=== PATIENT | female | born 1970 | race Caucasian/White ===

== ENCOUNTER → 2017-01-05 | Outpatient (CLI) | payer BC | LOC: MMGSC 10:54 | PROVIDERS: ATTEND Family Medicine | DX: E03.9 Hypothyroidism, unspecified (principal) | CPT/HCPCS: 36415; 84439; 84443 ==

== ENCOUNTER → 2017-05-09 | Outpatient (CLI) | payer BC ==
[2017-05-09 20:45] LABS: Basophils % (A) 1 %; Eosinophils # (A) 0.2 k/uL (0-0.7); Eosinophils % (A) 3 %; HCT 38.1 % (34.0-46.0); HDW 2.78; HGB 12.2 gm/dL (11.4-16.0); Luc # (Auto) 0.11; Luc % (Auto) 2; Lymphocytes # (A) 1.7 k/uL (1.0-4.8); Lymphocytes % (A) 30 %; MCH 28.1 pg (25.0-35.0); MCHC 32.1 g/dL (31.0-37.0); MCV 87.8 fL (80.0-100.0); Mean Platelet Volume 8.5; Monocytes # (A) 0.3 k/uL (0-1.0); Monocytes % (A) 6 %; Neutrophils # (A) 3.3 k/uL (1.3-7.7); Neutrophils % (A) 59 %; RBC 4.34 m/uL (3.80-5.40); RDW 15.1 % (11.5-15.5); WBC 5.6 k/uL (3.8-10.6); WBC (Perox) 5.76
[2017-05-09 20:57] LABS: ALT 29 U/L (9-52); AST 25 U/L (14-36); Alkaline Phosphatase 102 U/L (38-126); Anion Gap 12 mmol/L; Blood Urea Nitrogen 15 mg/dL (7-17); Calcium 9.3 mg/dL (8.4-10.2); Carbon Dioxide 20 mmol/L (22-30); Chloride 109 mmol/L (98-107); Cholesterol 234 mg/dL (<200); Glucose 99 mg/dL (74-99); HDL Cholesterol 51 mg/dL (40-60); Non-African American GFR(MDRD) >60 (>60 ml/min/1.73 sqM); Potassium 3.7 mmol/L (3.5-5.1); Sodium 141 mmol/L (137-145); Total Bilirubin 0.3 mg/dL (0.2-1.3); Total Protein 6.9 g/dL (6.3-8.2)
== END ==
LOC: MMGSC 12:58
PROVIDERS: ATTEND Family Medicine
DX: E03.9 Hypothyroidism, unspecified (principal); E66.9 Obesity, unspecified; E55.9 Vitamin D deficiency, unspecified; G35 Multiple sclerosis
CPT/HCPCS: 36415; 80053; 80061; 82306; 84439; 84443; 85025

== ENCOUNTER → 2018-10-11 | Outpatient (CLI) | payer BC ==
[2018-10-11 08:09] LABS: HGB 12.1 gm/dL (11.4-16.0); MCH 27.3 pg (25.0-35.0); MCHC 31.1 g/dL (31.0-37.0); MCV 87.8 fL (80.0-100.0); Mean Platelet Volume 6.9; Platelet Count 408 k/uL (150-450); RBC 4.44 m/uL (3.80-5.40); RDW 13.9 % (11.5-15.5); WBC 9.1 k/uL (3.8-10.6)
[2018-10-11 20:59] LABS: Albumin 4.5 g/dL (3.80-4.90); Albumin/Globulin Ratio 1.96 (1.60-3.17); Anion Gap 9.2 mmol/L (4.00-12.00); Calcium 9.2 mg/dL (8.7-10.3); Carbon Dioxide 25.8 mmol/L (21.6-31.8); Globulin 2.3 g/dL (1.6-3.3); LDL Cholesterol,Calculated 136.4 mg/dL (0.0-131.0); Potassium 3.6 mmol/L (3.5-5.5); Total Bilirubin 0.2 mg/dL (0.3-1.2); Total Protein 6.8 g/dL (6.2-8.2); VLDL Calculation 24.6 mg/dL (5.00-40.00)
[2018-10-11 21:09] LABS: T4, Free (Free Thyroxine) 1.5 ng/dL (0.80-1.80)
== END | disposition home or self-care (01) ==
LOC: LABWHC1 07:29
PROVIDERS: ATTEND Family Medicine
DX: E03.9 Hypothyroidism, unspecified (principal); E55.9 Vitamin D deficiency, unspecified; I10 Essential (primary) hypertension
CPT/HCPCS: 36415; 80053; 80061; 82306; 84439; 84443; 85027

== ENCOUNTER 2018-12-03 13:28 | Emergency (ER) | payer BC ==
--- NOTE | 2018-12-03 16:10 | ED ---
General Adult HPI - General Chief complaint: Upper Respiratory Infection Stated complaint: Fever, Body Aches Time Seen by Provider: 12/03/18 15:37 Source: patient Mode of arrival: ambulatory Limitations: no limitations - History of Present Illness Initial comments: Patient is a 48-year-old female complaining of fever, chills, body aches 3 days. Patient believes she has a UTI. Patient states she has UTIs frequently and often feels similar. She denies burning with urination, discharge. Patient has past medical history of MS. Patient also admits to mild cough, runny nose, headache, earaches, generalized abdominal pain. Patient denies chest pain, shortness of breath. States she has been having a fever of 100-101 at home and taking Motrin. - Related Data Home Medications Medication Instructions Recorded Confirmed Dextroamphetamine/Amphetamine 20 mg PO TID 04/15/16 12/03/18 [Adderall] Ergocalciferol [Vitamin D2 50,000 unit PO FR 12/03/18 12/03/18 (DRISDOL)] Ibuprofen [Motrin] 800 mg PO Q8H 12/03/18 12/03/18 Levothyroxine Sodium [Synthroid] 125 mcg PO DAILY 12/03/18 12/03/18 Loratadine [Claritin] 10 mg PO DAILY PRN 12/03/18 12/03/18 Previous Rx's Medication Instructions Recorded Metoprolol Succinate (ER) [Toprol 25 mg PO DAILY #14 tab.er.24h 05/11/15 XL] Cephalexin [Keflex] 500 mg PO Q12HR 7 Days #14 cap 12/03/18 Allergies Allergy/AdvReac Type Severity Reaction Status Date / Time sulfamethoxazole Allergy Intermediate Rash/Hives Verified 12/03/18 15:46 [From Bactrim] trimethoprim [From Bactrim] Allergy Intermediate Rash/Hives Verified 12/03/18 15:46 Review of Systems ROS Statement: Those systems with pertinent positive or pertinent negative responses have been documented in the HPI. ROS Other: All systems not noted in ROS Statement are negative. Past Medical History Past Medical History: Fibromyalgia, Neurologic Disorder, Thyroid Disorder Additional Past Medical History / Comment(s): ms, chronic fatigue, qt syndrome, Anemia, B-12 deficiency, Vit D deficiency History of Any Multi-Drug Resistant Organisms: None Reported Past Surgical History: Appendectomy, Bariatric Surgery, Tubal Ligation Additional Past Surgical History / Comment(s): breast reconstruction Past Anesthesia/Blood Transfusion Reactions: No Reported Reaction Past Psychological History: ADD/ADHD, Anxiety, Depression, Panic Disorder, PTSD Smoking Status: Never smoker Past Alcohol Use History: None Reported Past Drug Use History: None Reported - Past Family History Father Family Medical History: Cancer Mother Family Medical History: No Reported History Sister(s) Family Medical History: No Reported History Daughter(s) Family Medical History: No Reported History Son(s) Family Medical History: No Reported History General Exam - General Exam Comments Initial Comments: GENERAL: Well-appearing, well-nourished and in no acute distress. HEAD: Atraumatic, normocephalic. EYES: Pupils equal round and reactive to light, extraocular movements intact, sclera anicteric, conjunctiva are normal. ENT: TMs normal, nares patent, oropharynx clear without exudates. Moist mucous membranes. NECK: Normal range of motion, supple without lymphadenopathy or JVD. LUNGS: Breath sounds clear to auscultation bilaterally and equal. No wheezes rales or rhonchi. HEART: Regular rate and rhythm without murmurs, rubs or gallops. ABDOMEN: Generalized abdominal pain. Soft, normoactive bowel sounds. No guarding, no rebound. No masses appreciated. : Deferred EXTREMITIES: Normal range of motion, no pitting or edema. No clubbing or cyanosis. NEUROLOGICAL: Cranial nerves II through XII grossly intact. Normal speech, normal gait. PSYCH: Normal mood, normal affect. SKIN: Warm, Dry, normal turgor, no rashes or lesions noted. Limitations: no limitations Course Vital Signs 12/03/18 14:24 Temperature 99.3 F Pulse Rate 104 H Respiratory 20 Rate Blood Pressure 98/55 O2 Sat by Pulse 96 Oximetry Medical Decision Making - Medical Decision Making Patient is a 48-year-old female complaining of fever, generalized fatigue 3 days. She states she thinks she has a UTI as she has had these in the past and often feels similar. She denies any urinary complaints. Past medical history of MS. Admits to associated cough, runny nose, congestion, generalized abdominal pain, headache. Other than general abdominal tenderness, exam is normal. UA shows a large amount leukocyte Estrace and nitrates positive. Patient will be given Keflex and discharged home. Disposition Clinical Impression: UTI (urinary tract infection) Disposition: HOME SELF-CARE Condition: Stable Instructions (If sedation given, give patient instructions): Urinary Tract Infection in Women (ED) Additional Instructions: Please return to the Emergency Department if symptoms worsen or any other concerns. Prescriptions: Cephalexin [Keflex] 500 mg PO Q12HR 7 Days #14 cap Is patient prescribed a controlled substance at d/c from ED?: No Referrals: Shanita Montano MD [Primary Care Provider] - 1-2 days
[2018-12-03 17:13] LABS: Appearance,Urine Cloudy (Clear); Bacteria,Urine Many /hpf; Bilirubin,Urine Negative (Negative); Blood,Urine Trace (Negative); Color,Urine Light Yellow; Glucose,Urine (UA) Negative (Negative); Hyaline Casts,Urine 4 /lpf (0-2); Ketones,Urine Negative (Negative); Leukocyte Esterase,Urine Large (Negative); Mucus,Urine Rare /hpf; Nitrite,Urine Positive (Negative); PH, Urine 5.5 (5.0-8.0); Protein,Urine 1+ (Negative); RBC,Urine 2 /hpf (0-5); Specific Gravity,Urine 1.009 (1.001-1.035); Squamous Epithelial Cell,Urine 7 /hpf (0-4); Urobilinogen,Urine <2.0 mg/dL (<2.0)
[2018-12-03 17:21] VITALS: RESP 16
[2018-12-03 17:32] VITALS: BP 118/80; PULSE 83; TEMP 99.1
== END 2018-12-03 17:27 | disposition home or self-care (01) ==
LOC: EC 13:28
DX: N39.0 Urinary tract infection, site not specified (principal); R53.83 Other fatigue; R05 Cough; R09.89 Other specified symptoms and signs involving the circulatory and respiratory systems; R10.84 Generalized abdominal pain; R51 Headache; M79.7 Fibromyalgia; E07.9 Disorder of thyroid, unspecified; F90.9 Attention-deficit hyperactivity disorder, unspecified type; F41.0 Panic disorder [episodic paroxysmal anxiety]; F32.9 Major depressive disorder, single episode, unspecified; F43.10 Post-traumatic stress disorder, unspecified; Z79.899 Other long term (current) drug therapy; Z79.890 Hormone replacement therapy; Z79.1 Long term (current) use of non-steroidal anti-inflammatories (NSAID); Z88.1 Allergy status to other antibiotic agents; Z88.2 Allergy status to sulfonamides; Z90.49 Acquired absence of other specified parts of digestive tract
CPT/HCPCS: 81001; 87086; 99283

== ENCOUNTER → 2019-08-21 | Outpatient (CLI) | payer BC ==
[2019-08-21 12:14] LABS: T4, Free (Free Thyroxine) 1.5 ng/dL (0.80-1.80)
[2019-08-21 13:08] LABS: African American GFR (CKD) 87.6 (60.0-200.0); Albumin 4.7 g/dL (3.80-4.90); Albumin/Globulin Ratio 2.24 (1.60-3.17); Anion Gap 5.9 mmol/L (4.00-12.00); BUN/Creat Ratio 15.56 Ratio (12.00-20.00); Carbon Dioxide 28.1 mmol/L (21.6-31.8); Chol/HDL Ratio 4.15; Globulin 2.1 g/dL (1.6-3.3); LDL Cholesterol,Calculated 167.2 mg/dL (0.0-131.0); Non-African American GFR(CKD) 75.6 (60.0-200.0); Potassium 5.1 mmol/L (3.5-5.5); Total Bilirubin 0.3 mg/dL (0.2-1.2); Total Protein 6.8 g/dL (6.2-8.2); VLDL Calculation 40.8 mg/dL (5.00-40.00)
== END | disposition home or self-care (01) ==
LOC: LABWHC1 06:39
PROVIDERS: ATTEND Family Medicine
DX: I10 Essential (primary) hypertension (principal); E03.9 Hypothyroidism, unspecified
CPT/HCPCS: 36415; 80053; 80061; 84439; 84443

== ENCOUNTER → 2020-06-11 | Outpatient (CLI) | payer BC ==
[2020-06-11 16:53] LABS: Chol/HDL Ratio 4.14; LDL Cholesterol,Calculated 158.4 mg/dL (0.0-131.0); VLDL Calculation 23.6 mg/dL (5.00-40.00)
[2020-06-11 17:01] LABS: T4, Free (Free Thyroxine) 1.7 ng/dL (0.80-1.80)
== END | disposition home or self-care (01) ==
LOC: LABWHC1 08:32
PROVIDERS: ATTEND Family Medicine
DX: E55.9 Vitamin D deficiency, unspecified (principal); E03.9 Hypothyroidism, unspecified; E78.5 Hyperlipidemia, unspecified
CPT/HCPCS: 36415; 80061; 82306; 84439; 84443

== ENCOUNTER 2022-11-28 02:22 | Emergency (ER) | payer BC ==
[2022-11-28] MEDS ORDERED: ALBUTEROL HFA INHALER INHALATION STA (02:55)
[2022-11-28] MEDS ORDERED: SODIUM CHLORIDE 0.9% 1,000 ML IV STA (02:55)
[2022-11-28] MEDS ORDERED: methylPREDNISolone SOD SUCCI 125 MG/2 ML VIAL IV STA (02:55)
[2022-11-28 03:25] LABS: Anisocytosis Slight; Basophils % (A) 0 %; Eosinophils # (A) 0.2 k/uL (0-0.7); Eosinophils % (A) 2 %; HCT 30.5 % (34.0-46.0); HGB 9.9 gm/dL (11.4-16.0); Lymphocytes # (A) 3.2 k/uL (1.0-4.8); Lymphocytes % (A) 22 %; MCH 26.4 pg (25.0-35.0); MCHC 32.5 g/dL (31.0-37.0); MCV 81.1 fL (80.0-100.0); Mean Platelet Volume 7.6; Monocytes # (A) 0.7 k/uL (0-1.0); Monocytes % (A) 5 %; Neutrophils # (A) 9.9 k/uL (1.3-7.7); Neutrophils % (A) 68 %; Platelet Count 493 k/uL (150-450); RBC 3.76 m/uL (3.80-5.40); RDW 16.2 % (11.5-15.5); WBC 14.6 k/uL (3.8-10.6)
[2022-11-28 03:30] LABS: Albumin 3.7 g/dL (3.5-5.0); Calcium 8.3 mg/dL (8.4-10.2); Magnesium 2.1 mg/dL (1.6-2.3); Partial Thromboplastin Time 25.1 sec (22.0-30.0); Potassium 3.2 mmol/L (3.5-5.1); Prothrombin Time 10.2 sec (9.0-12.0); Total Bilirubin 0.3 mg/dL (0.2-1.3); Total Protein 6.9 g/dL (6.3-8.2)
[2022-11-28] MEDS ORDERED: KETOROLAC 15 MG/ML 1 ML VIAL IVP STA (03:34)
--- NOTE | 2022-11-28 05:07 | XR ---
EXAM: XR Chest, 2 Views CLINICAL HISTORY: ITS.REASON XR Reason: difficulty breathing TECHNIQUE: Frontal and lateral views of the chest. COMPARISON: X-ray dated 02/27/2015 FINDINGS: Lungs: Unremarkable. No consolidation. Pleural space: Unremarkable. No pneumothorax. Heart: Unremarkable. No cardiomegaly. Mediastinum: Unremarkable. Bones/joints: Unremarkable. Upper abdomen: Surgical clips are seen within the mid upper abdomen. IMPRESSION: No acute cardiopulmonary disease.
[2022-11-28] MEDS ORDERED: AMOXIC-POT CLAV 875-125MG 1 EACH TAB PO STA (05:14)
[2022-11-28] MEDS ORDERED: POTASSIUM CHLORIDE ER 20 MEQ TAB.ER PO STA (05:14)
--- NOTE | 2022-11-28 05:15 | ED ---
General Adult HPI - General Chief complaint: Shortness of Breath Stated complaint: Difficulty Breathing, Bronchitis Time Seen by Provider: 11/28/22 02:53 Source: patient, RN notes reviewed, old records reviewed Mode of arrival: ambulatory Limitations: no limitations - History of Present Illness Initial comments: Patient is a 52-year-old female with past medical history remarkable for fibromyalgia, thyroid disorder presents emergency Department with multiple weeks of a nonproductive cough. Believe she has bronchitis. Has been treated twice with Medrol Dosepak's and sepsis. She has done the cough comes back. She states she is a nonsmoker. Does have a history of MS. Denies any fevers. Does endorse some left-sided chest discomfort with coughing. Denies any abdominal pain. Denies any nausea or vomiting or diarrhea. No known sick contacts. No fevers. No sore throat. Presents for further evaluation at this time. - Related Data Home Medications Medication Instructions Recorded Confirmed Dextroamphetamine/Amphetamine 20 mg PO TID 04/15/16 12/03/18 [Adderall] Ergocalciferol [Vitamin D2 50,000 unit PO FR 12/03/18 12/03/18 (DRISDOL)] Ibuprofen [Motrin] 800 mg PO Q8H 12/03/18 12/03/18 Levothyroxine Sodium [Synthroid] 125 mcg PO DAILY 12/03/18 12/03/18 Loratadine [Claritin] 10 mg PO DAILY PRN 12/03/18 12/03/18 Previous Rx's Medication Instructions Recorded Metoprolol Succinate (ER) [Toprol 25 mg PO DAILY #14 tab.er.24h 05/11/15 XL] Cephalexin [Keflex] 500 mg PO Q12HR 7 Days #14 cap 12/03/18 Albuterol Inhaler [Ventolin Hfa 1 puff INHALATION TID #8 gm 11/28/22 Inhaler] Amoxic-Pot Clav 875-125Mg 1 tab PO Q12HR 7 Days #14 tab 11/28/22 [Augmentin 875-125] predniSONE [Deltasone] 40 mg PO DAILY 5 Days #10 tab 11/28/22 Allergies Allergy/AdvReac Type Severity Reaction Status Date / Time sulfamethoxazole Allergy Intermediate Rash/Hives Verified 11/28/22 02:25 [From Bactrim] trimethoprim [From Bactrim] Allergy Intermediate Rash/Hives Verified 11/28/22 02:25 Review of Systems ROS Statement: Those systems with pertinent positive or pertinent negative responses have been documented in the HPI. Review of Systems: CONST: Denies fever EYES: Denies blurry vision ENT: Endorses nasal congestion C/V: Denies Chest pain RESP: Denies shortness of breath GI: Denies abdominal pain : Denies dysuria SKIN: Denies rash. MSK: Denies joint pain. NEURO: Denies headache ROS Other: All systems not noted in ROS Statement are negative. Past Medical History Past Medical History: Fibromyalgia, Neurologic Disorder, Thyroid Disorder Additional Past Medical History / Comment(s): ms, chronic fatigue, qt syndrome, Anemia, B-12 deficiency, Vit D deficiency History of Any Multi-Drug Resistant Organisms: None Reported Past Surgical History: Appendectomy, Bariatric Surgery, Tubal Ligation Additional Past Surgical History / Comment(s): breast reconstruction Past Anesthesia/Blood Transfusion Reactions: No Reported Reaction Past Psychological History: ADD/ADHD, Anxiety, Depression, Panic Disorder, PTSD Smoking Status: Never smoker Past Alcohol Use History: Rare Past Drug Use History: Marijuana - Past Family History Father Family Medical History: Cancer Mother Family Medical History: No Reported History Sister(s) Family Medical History: No Reported History Daughter(s) Family Medical History: No Reported History Son(s) Family Medical History: No Reported History General Exam - General Exam Comments Initial Comments: General: Appears in no acute distress. HEAD: Normal with no signs of head trauma. EYES: PERRLA, EOMI, conjunctiva normal, no discharge. ENT: Hearing grossly intact, normal oropharynx. RESPIRATORY: Clear breath sounds bilaterally. No wheezes, rales, or rhonchi. Increased work of breathing and coughing but at rest is within normal limits. No hypoxia. C/V: Tachycardic with a regular rhythm. S1 and S2 auscultated, no edema, peripheral pulses 2+ and intact throughout ABD: Abd is soft, nontender, nondistended EXT: Normal range of motion, no obvious deformity SKIN: No rashes or lesions observed on exposed skin. NEURO: Alert and oriented 4. Limitations: no limitations Course Vital Signs 11/28/22 11/28/22 02:25 03:01 Temperature 99.1 F Pulse Rate 119 H 87 Respiratory 32 H 20 Rate Blood Pressure 154/100 147/91 O2 Sat by Pulse 95 98 Oximetry Medical Decision Making - Medical Decision Making Was pt. sent in by a medical professional or institution (, KARLA, DATA PROCESSING OPERATOR, urgent care, hospital, or fpc...) When possible be specific @ -No Did you speak to anyone other than the patient for history (EMS, parent, family, police, friend...)? What history was obtained from this source @ -No Did you review nursing and triage notes (agree or disagree)? Why? @ -I reviewed and agree with nursing and triage notes Were old charts reviewed (outside hosp., previous admission, EMS record, old EKG, old radiological studies, urgent care reports/EKG's, fpc records)? Report findings @ -No old charts were reviewed Differential Diagnosis (chest pain, altered mental status, abdominal pain women, abdominal pain men, vaginal bleeding, weakness, fever, dyspnea, syncope, headache, dizziness, GI bleed, back pain, seizure, CVA, palpatations, mental health, musculoskeletal)? @ -Differential Dyspnea: Coronary syndrome, arrhythmia, tamponade, asthma, COPD, pulmonary embolism, pneumonia, pneumothorax, pulmonary effusion, anaphylaxis, diabetic ketoacidosis, flailed chest, pulmonary contusion, diaphragmatic rupture, anemia, neuromuscular, this is not meant to be an all-inclusive list. EKG interpreted by me (3pts min.). @ -As above X-rays interpreted by me (1pt min.). @ -Chest x-ray reveals no obvious acute cardiopulmonary process. CT interpreted by me (1pt min.). @ -None done U/S interpreted by me (1pt. min.). @ -None done What testing was considered but not performed or refused? (CT, X-rays, U/S, labs)? Why? @ -None What meds were considered but not given or refused? Why? @ -None Did you discuss the management of the patient with other professionals (francisco javier sepulveda iJeanettee. KARLA Cheatham, DATA PROCESSING OPERATOR, lab, RT, psych nurse, social media assistant, tow truck driver, teacher, agricultural extension officer, rehabilitation case coordinator)? Give summary @ -No Was smoking cessation discussed for >3mins.? @ -No Was critical care preformed (if so, how long)? @ -No Were there social determinants of health that impacted care today? How? (Homelessness, low income, unemployed, alcoholism, drug addiction, transportatio n, low edu. Level, literacy, decrease access to med. care, senior care, rehab)? @ -No Was there de-escalation of care discussed even if they declined (Discuss DNR or withdrawal of care, Hospice)? DNR status @ -No What co-morbidities impacted this encounter? (DM, HTN, Smoking, COPD, CAD, Cancer, CVA, ARF, Chemo, Hep., AIDS, mental health diagnosis, sleep apnea, morbid obesity)? @ -None Was patient admitted / discharged? Hospital course, mention meds given and route, prescriptions, significant lab abnormalities, going to OR and other pertinent info. @ -Based on the patient's presentation and physical exam, I do believe she is likely experiencing continued bronchitis but cannot rule out other etiologies for her upper respiratory symptoms at this time. Due to the nonspecific left- sided chest discomfort we will obtain cardiac screening labs. She'll be sent likely treatment with IV Toradol, as well as IV Solu-Medrol, IV fluids, be on inhaler. Vital signs within acceptable limits at bedside. She was in agreement with this plan. EKG showed no signs of acute ischemia. Chest x-ray unremarkable. Labs show mild leukocytosis of 14. Chronic anemia. Hypokalemia which was replenished. Troponin undetectable. BNP within normal limits. On reevaluation, we did discuss she is likely experiencing bronchitis. She has not yet been trialed on antibiotic she will be started on Augmentin twice a day and given a dose here in the department. She'll also receive a prescription for steroids and albuterol inhaler. She was in agreement with this plan. Strict return precautions discussed. Instructions to follow up with PCP. I will provide the patient with a prescription for Augmentin, prednisone, albuterol inhaler. I instructed the patient to follow up with their PCP in the next 1-3 days. I explained that the patient should return to the emergency department if they experience any worsening symptoms. Strict return precautions were discussed with the patient. The patient expressed understanding of these instructions. I answered all questions that the patient had. The patient was discharged home in good condition with their prescriptions and follow up information. Undiagnosed new problem with uncertain prognosis? @ -No Drug Therapy requiring intensive monitoring for toxicity (Heparin, Nitro, Insulin, Cardizem)? @ -No Were any procedures done? @ -No Diagnosis/symptom? @ -Bronchitis Acute, or Chronic, or Acute on Chronic? @ -Acute Uncomplicated (without systemic symptoms) or Complicated (systemic symptoms)? @ -Complicated Side effects of treatment? @ -No Exacerbation, Progression, or Severe Exacerbation? @ -No Poses a threat to life or bodily function? How? (Chest pain, USA, MS, pneumonia, PE, COPD, DKA, ARF, appy, cholecystitis, CVA, Diverticulitis, Homicidal, Suicidal, threat to staff... and all critical care pts) @ -No Diagnosis/symptom? @ -Hypokalemia Acute, or Chronic, or Acute on Chronic? @ -Acute Uncomplicated (without systemic symptoms) or Complicated (systemic symptoms)? @ -Uncomplicated Side effects of treatment? @ -none Exacerbation, Progression, or Severe Exacerbation] @ -no Poses a threat to life or bodily function? @ -no - Lab Data Result diagrams: 11/28/22 03:06 11/28/22 03:06 Lab Results 11/28/22 11/28/22 11/28/22 Range/Units 03:06 03:06 03:06 WBC 14.6 H (3.8-10.6) k/uL RBC 3.76 L (3.80-5.40) m/uL Hgb 9.9 L (11.4-16.0) gm/dL Hct 30.5 L (34.0-46.0) % MCV 81.1 (80.0-100.0) fL MCH 26.4 (25.0-35.0) pg MCHC 32.5 (31.0-37.0) g/dL RDW 16.2 H (11.5-15.5) % Plt Count 493 H (150-450) k/uL MPV 7.6 Neutrophils % 68 % Lymphocytes % 22 % Monocytes % 5 % Eosinophils % 2 % Basophils % 0 % Neutrophils # 9.9 H (1.3-7.7) k/uL Lymphocytes # 3.2 (1.0-4.8) k/uL Monocytes # 0.7 (0-1.0) k/uL Eosinophils # 0.2 (0-0.7) k/uL Basophils # 0.0 (0-0.2) k/uL Anisocytosis Slight PT 10.2 (9.0-12.0) sec INR 1.0 (<1.2) APTT 25.1 (22.0-30.0) sec Sodium 138 (137-145) mmol/L Potassium 3.2 L (3.5-5.1) mmol/L Chloride 110 H (98-107) mmol/L Carbon Dioxide 15 L (22-30) mmol/L Anion Gap 13 mmol/L BUN 12 (7-17) mg/dL Creatinine 1.13 H (0.52-1.04) mg/dL Est GFR (CKD-EPI)AfAm 65 (>60 ml/min/1.73 sqM) Est GFR (CKD-EPI)NonAf 57 (>60 ml/min/1.73 sqM) Glucose 99 (74-99) mg/dL Calcium 8.3 L (8.4-10.2) mg/dL Magnesium 2.1 (1.6-2.3) mg/dL Total Bilirubin 0.3 (0.2-1.3) mg/dL AST 41 H (14-36) U/L ALT 31 (4-34) U/L Alkaline Phosphatase 134 H (38-126) U/L Troponin I (0.000-0.034) ng/mL NT-Pro-B Natriuret Pep pg/mL Total Protein 6.9 (6.3-8.2) g/dL Albumin 3.7 (3.5-5.0) g/dL 11/28/22 11/28/22 Range/Units 03:06 03:06 WBC (3.8-10.6) k/uL RBC (3.80-5.40) m/uL Hgb (11.4-16.0) gm/dL Hct (34.0-46.0) % MCV (80.0-100.0) fL MCH (25.0-35.0) pg MCHC (31.0-37.0) g/dL RDW (11.5-15.5) % Plt Count (150-450) k/uL MPV Neutrophils % % Lymphocytes % % Monocytes % % Eosinophils % % Basophils % % Neutrophils # (1.3-7.7) k/uL Lymphocytes # (1.0-4.8) k/uL Monocytes # (0-1.0) k/uL Eosinophils # (0-0.7) k/uL Basophils # (0-0.2) k/uL Anisocytosis PT (9.0-12.0) sec INR (<1.2) APTT (22.0-30.0) sec Sodium (137-145) mmol/L Potassium (3.5-5.1) mmol/L Chloride (98-107) mmol/L Carbon Dioxide (22-30) mmol/L Anion Gap mmol/L BUN (7-17) mg/dL Creatinine (0.52-1.04) mg/dL Est GFR (CKD-EPI)AfAm (>60 ml/min/1.73 sqM) Est GFR (CKD-EPI)NonAf (>60 ml/min/1.73 sqM) Glucose (74-99) mg/dL Calcium (8.4-10.2) mg/dL Magnesium (1.6-2.3) mg/dL Total Bilirubin (0.2-1.3) mg/dL AST (14-36) U/L ALT (4-34) U/L Alkaline Phosphatase (38-126) U/L Troponin I <0.012 (0.000-0.034) ng/mL NT-Pro-B Natriuret Pep 212 pg/mL Total Protein (6.3-8.2) g/dL Albumin (3.5-5.0) g/dL - EKG Data -: EKG Interpreted by Me EKG Comments: 12-lead Electrocardiogram Interpretation Note EKG was reviewed and interpreted by myself. 12-lead ECG performed at 0310 is interpreted by me as revealing normal sinus rhythm at a rate of 77 beats per minute. Many is normal. IL interval is 175 ms, QRS duration is 101 ms, QTc is or 422 ms.. There were no ST or T wave abnormalities to suggest myocardial ischemia or injury. R wave progression across the precordium was satisfactory. By my interpretation this EKG is non-diagnostic for acute ischemia. Disposition Clinical Impression: Acute bronchitis, Hypokalemia Disposition: HOME SELF-CARE Condition: Good Instructions (If sedation given, give patient instructions): Acute Bronchitis (ED) Prescriptions: Amoxic-Pot Clav 875-125Mg [Augmentin 875-125] 1 tab PO Q12HR 7 Days #14 tab predniSONE [Deltasone] 40 mg PO DAILY 5 Days #10 tab Albuterol Inhaler [Ventolin Hfa Inhaler] 1 puff INHALATION TID #8 gm Is patient prescribed a controlled substance at d/c from ED?: No Referrals: Shanita Montano MD [Primary Care Provider] - 1-2 days Time of Disposition: 05:09
[2022-11-28 05:24] VITALS: BP 136/84; PULSE 85; RESP 16; TEMP 98.3
== END 2022-11-28 05:23 | disposition home or self-care (01) ==
LOC: EC 02:22
DX: J20.9 Acute bronchitis, unspecified (principal); E87.6 Hypokalemia; E07.9 Disorder of thyroid, unspecified; F41.9 Anxiety disorder, unspecified; F32.A Depression, unspecified; F12.90 Cannabis use, unspecified, uncomplicated; Z88.2 Allergy status to sulfonamides; Z79.890 Hormone replacement therapy; Z79.899 Other long term (current) drug therapy
CPT/HCPCS: 36415; 93005; 83880; 80053; 83735; 84484; 85025; 85610; 85730; 71046; 99285; 96374; 96375; 96361; J2930; J1885

== ENCOUNTER → 2022-12-09 | Outpatient (CLI) | payer BC ==
--- NOTE | 2022-12-12 19:13 | MM ---
Reason for Exam: Screening (asymptomatic). Last mammogram was performed 6 year(s) and 9 month(s) ago. Patient History: Menarche at age 14. First Full-Term at age 19. Postmenopausal. 2004, Bilateral Implants. Risk Values: Marisol 5 year model risk: 0.7%. NCI Lifetime model risk: 6.4%. Prior Study Comparison: 04/19/2012 Bilateral Diagnostic Mammogram, [facility]. 03/30/2016 Bilateral Screening Mammogram, [facility]. Tissue Density: There are scattered fibroglandular densities. Findings: Analyzed By CAD. Pattern appears symmetrical and stable. Bilateral breast prostheses are present. There is a architectural distortion within the medial aspect left breast craniocaudal implant displaced view not present previously. Additional evaluation with a compression view is recommended. No corresponding abnormality on the medial lateral oblique view were standard cranial caudal view. Patient should return for compression view craniocaudal implant displaced view. Overall Assessment: Incomplete: need additional imaging evaluation, BI-RAD 0 Management: Diagnostic Mammogram of the left breast. A negative mammogram report should not preclude additional follow up of suspicious palpable abnormalities. Patient should continue monthly self breast exam. A clinical breast exam by your physician is recommended on an annual basis and results should be correlated with mammographic findings. Electronically signed and approved by: Aleksander Jarrell D.O. Radiologis
== END | disposition home or self-care (01) ==
LOC: RADMAMWWP 14:54
PROVIDERS: ATTEND Family Medicine
DX: Z12.31 Encounter for screening mammogram for malignant neoplasm of breast (principal); Z78.0 Asymptomatic menopausal state
CPT/HCPCS: 77067

== ENCOUNTER → 2022-12-15 | Outpatient (CLI) | payer BC ==
--- NOTE | 2022-12-15 14:29 | MM ---
Reason for Exam: Additional evaluation requested from abnormal screening. Last screening mammogram was performed less than 1 month ago. Patient History: Menarche at age 14. First Full-Term at age 19. Postmenopausal. 2004, Bilateral Implants. Risk Values: Marisol 5 year model risk: 0.7%. NCI Lifetime model risk: 6.4%. Prior Study Comparison: 04/19/2012 Bilateral Diagnostic Mammogram, [facility]. 03/30/2016 Bilateral Screening Mammogram, [facility]. 12/09/2022 Bilateral MG screening mammo implant/CAD, [facility]. Tissue Density: Left: The breast tissue is heterogeneously dense. This may lower the sensitivity of mammography. Findings: Analyzed By CAD. No persistent mass or distortion. Overall Assessment: Negative, BI-RAD 1 Management: Screening Mammogram of both breasts in 1 year. . Results were given to the patient verbally at the time of exam. Patient should continue monthly self-breast exams. A clinical breast exam by your physician is recommended on an annual basis. This exam should not preclude additional follow-up of suspicious palpable abnormalities. Note on Marisol scores and lifetime risk: 1. A Marisol score greater than 3% is considered moderate risk. If this is the case, consider specialist referral to assess eligibility for a risk reducing agent. 2. If overall lifetime risk for the development of breast cancer is 20% or higher, the patient may qualify for future screening with alternating mammogram and breast MRI. Electronically signed and approved by: Enrike Enrique M.D. Radiologis
== END | disposition home or self-care (01) ==
LOC: RADMAMWWP 13:33
PROVIDERS: ATTEND Family Medicine
DX: R92.8 Other abnormal and inconclusive findings on diagnostic imaging of breast (principal); Z78.0 Asymptomatic menopausal state
CPT/HCPCS: 77061; 77065

== ENCOUNTER → 2022-12-19 | Outpatient (CLI) | payer BC ==
[2022-12-19 16:57] LABS: Basophils # (A) 0.05 X 10*3/uL (0.00-0.10); Basophils % (A) 0.6 %; Eosinophils # (A) 0.48 X 10*3/uL (0.04-0.35); Eosinophils % (A) 6.1 %; HCT 34.2 % (37.2-46.3); HGB 10.3 d/dL (12.0-15.0); Lymphocytes # (A) 2.04 X 10*3/uL (0.90-5.00); Lymphocytes % (A) 25.8 %; MCH 26.3 pg (27.0-32.0); MCHC 30.1 d/dL (32.0-37.0); MCV 87.2 FL (80.0-97.0); Mean Platelet Volume 9.5 FL (9.5-12.2); Monocytes # (A) 0.52 X 10*3/uL (0.20-1.00); Monocytes % (A) 6.6 %; NRBC Per 100 WBC 0 X 10*3/uL (0.00-0.01); Neutrophils % (A) 60.6 %; Platelet Count 472 X 10*3/uL (140-440); RBC 3.92 X 10*6/uL (4.10-5.20); RDW 15.7 % (11.5-14.5); WBC 7.91 X 10*3/uL (4.50-10.00)
[2022-12-20 17:58] LABS: % Iron Saturation 6.25 (12.00-45.00); BUN/Creat Ratio 19.25 Ratio (12.00-20.00); Blood Urea Nitrogen 15.4 mg/dL (9.0-27.0); Chol/HDL Ratio 3.81 Ratio; Glucose 92 mg/dL (70-110); Iron 25 UG/DL (50-170); Total Iron Binding Capacity 400 UG/DL (228-460)
[2022-12-20 17:59] LABS: ALT 20 U/L (8-44); AST 22 U/L (13-35); Albumin 4.1 d/dL (3.8-4.9); Albumin/Globulin Ratio 1.71 Ratio (1.60-3.17); Alkaline Phosphatase 180 U/L (41-126); Calcium 9.1 mg/dL (8.7-10.3); Carbon Dioxide 22.4 mmol/L (21.6-31.8); Chloride 107 mmol/L (96-109); Ferritin 11.3 ng/mL (10.0-291.0); Globulin 2.4 d/dL (1.6-3.3); Potassium 4.2 mmol/L (3.5-5.5); Sodium 142 mmol/L (135-145); Total Bilirubin <0.2 mg/dL (0.3-1.2); Total Protein 6.5 d/dL (6.2-8.2)
[2022-12-21 05:22] LABS: T4, Free (Free Thyroxine) 1.41 ng/dL (0.80-1.80)
== END | disposition home or self-care (01) ==
LOC: LABWHC1 07:47
PROVIDERS: ATTEND Family Medicine
DX: Z00.00 Encounter for general adult medical examination without abnormal findings (principal); E55.9 Vitamin D deficiency, unspecified; D50.9 Iron deficiency anemia, unspecified
CPT/HCPCS: 36415; 80053; 80061; 82306; 82728; 83540; 83550; 84439; 84443; 85025

== ENCOUNTER → 2023-04-21 | Outpatient (CLI) | payer BC ==
--- NOTE | 2023-04-22 20:01 | MR ---
EXAMINATION TYPE: MR brain/cspine wo/w DATE OF EXAM: 04/21/2023 6:34 PM CLINICAL INDICATION:Female, 52 years old with history of G35 MULTIPLE SCLEROSIS; [facility], Check-up on MS COMPARISON: 07/23/2012, 05/16/2016 05/05/2016. TECHNIQUE: Multi planar, multi sequence imaging was performed through the brain including: T1, T2, Inversion rec overy, Diffusion weighted imaging, and gradient echo imaging. No gadolinium was given. Multi planar, multi sequence imaging was performed utilizing: T1-weighted, T2-weighted, and turbo inv ersion recovery imaging of the cervical spine. IV Contrast: 7.5 cc Gadavist FINDINGS: No evidence for restricted diffusion are post contrast enhancement to suggest active demyel ination. Scattered white matter changes majority of which are not orthogonal to the lateral ventricle s. Overall there is at least one larger /new white matter change in the right posterior frontal lobe measuring 5 mm other in the left rother temporal lobe may be fractionally increase in size measuring 5 mm, previously 4 mm. Other areas scattered throughout the brain appear significantly changed. The dewitt-white junctions, ventricular system, and cisterns appear unremarkable. Midline structures sh ow no abnormality. Diffusion-weighted imaging shows no evidence of restricted diffusion. The suscepti bility weighted images do not reveal any evidence for micro-hemorrhage. The bone marrow signal is within normal limits. Paranasal sinuses and mastoid air cells: Mild mucosal thickening. Visualized orbits: Orbital contents are intact. Alignment: The cervical vertebral bodies have preserved heights. Grade 1 anterolisthesis of C4 on C5. Bones: Bone signal is within normal limits. No abnormal bone marrow edema on inversion recovery seque nces. No abnormal postcontrast enhancement. Cord: The spinal cord is unremarkable with regards to their signal intensity and morphology. No abnormal postcontrast enhancement. Discs: Multilevel disc desiccation is present. C2-C3: No significant disc pathology. The spinal canal is patent. Bilateral facet and uncovertebral joint arthropathy are present with mild right neural foraminal stenosis. The left neural foramen is p atent. C3-C4: No significant disc pathology. The spinal canal is patent. Bilateral facet and uncovertebral joint arthropathy are present with mild bilateral neural foraminal stenosis. C4-C5: Grade 1 anterolisthesis with disc uncovering. There is disc bulging possible superimposed prot rusion which impresses upon the anterior spinal cord. Spinal cord signal is maintained. There is mild spinal cord stenosis. The neural foramen are mildly narrowed. C5-C6: No significant disc pathology. The spinal canal is patent. No neural foraminal stenosis. C6-C7: A disc osteophyte complex is present which minimally narrows the ventral subarachnoid space. Bilateral facet and uncovertebral joint arthropathy are present with moderate right and mild left ne ural foraminal stenosis. C7-T1: No significant disc pathology. The spinal canal is patent. No neural foraminal stenosis. Other: None. IMPRESSION: 1. No evidence for active demyelination. Scattered white matter changes some of which are new and ot hers are larger. Overall findings minimally progressed from prior in 2016. 2. No evidence for active demyelination within the cervical spine. 3. C4-C5 grade 1 anterolisthesis with disc uncovering and possible central disc protrusion which imp resses upon the spinal cord. No abnormal spinal cord signal. There is mild spinal canal stenosis. 4. Multilevel degeneration changes throughout the spine with neural foraminal stenosis worse at C6-C 7 on the right with moderate neural foraminal stenosis.
== END | disposition home or self-care (01) ==
LOC: RADMRIMAIN 17:02
PROVIDERS: ATTEND Psychiatry & Neurology Neurology
DX: G35 Multiple sclerosis (principal); M43.12 Spondylolisthesis, cervical region; M48.02 Spinal stenosis, cervical region; M47.812 Spondylosis without myelopathy or radiculopathy, cervical region; M99.71 Connective tissue and disc stenosis of intervertebral foramina of cervical region
CPT/HCPCS: 70553; 72156; A9585

== ENCOUNTER → 2024-04-13 | Outpatient (CLI) | payer BC ==
[2024-04-13 15:06] LABS: ALT 22 U/L (8-44); AST 24 U/L (13-35); Albumin 4.4 g/dL (3.8-4.9); Albumin/Globulin Ratio 1.91 Ratio (1.60-3.17); Alkaline Phosphatase 114 U/L (41-126); BUN/Creat Ratio 30.75 Ratio (12.00-20.00); Blood Urea Nitrogen 24.6 mg/dL (9.0-27.0); Calcium 9.2 mg/dL (8.7-10.3); Carbon Dioxide 23.7 mmol/L (21.6-31.8); Chloride 105 mmol/L (96-109); Chol/HDL Ratio 3.57 Ratio; Globulin 2.3 g/dL (1.6-3.3); Glucose 88 mg/dL (70-110); LDL Cholesterol,Calculated 142.8 mg/dL (0.0-131.0); Sodium 140 mmol/L (135-145); T4, Free (Free Thyroxine) 1.03 ng/dL (0.80-1.80); Total Bilirubin 0.2 mg/dL (0.3-1.2); Total Protein 6.7 g/dL (6.2-8.2)
[2024-04-13 15:10] LABS: Basophils # (A) 0.04 X 10*3/uL (0.00-0.10); Basophils % (A) 0.4 %; Eosinophils # (A) 0.13 X 10*3/uL (0.04-0.35); Eosinophils % (A) 1.4 %; HCT 36.1 % (37.2-46.3); HGB 11.3 g/dL (12.0-15.0); Lymphocytes # (A) 2.27 X 10*3/uL (0.90-5.00); MCH 25.3 pg (27.0-32.0); MCHC 31.3 g/dL (32.0-37.0); MCV 80.9 FL (80.0-97.0); Mean Platelet Volume 9.1 FL (9.5-12.2); Monocytes # (A) 0.67 X 10*3/uL (0.20-1.00); Monocytes % (A) 7.1 %; NRBC Per 100 WBC 0 X 10*3/uL (0.00-0.01); Neutrophils # (A) 6.34 X 10*3/uL (1.80-7.70); Neutrophils % (A) 66.9 %; Platelet Count 417 X 10*3/uL (140-440); RBC 4.46 X 10*6/uL (4.10-5.20); RDW 16.4 % (11.5-14.5); WBC 9.47 X 10*3/uL (4.50-10.00)
== END | disposition home or self-care (01) ==
LOC: LABWHC1 07:54
PROVIDERS: ATTEND Family Medicine
DX: Z00.00 Encounter for general adult medical examination without abnormal findings (principal)
CPT/HCPCS: 36415; 80053; 80061; 83036; 84439; 84443; 85025